=== PATIENT | female | born 1960 | race Caucasian/White ===

== ENCOUNTER 2021-03-19 11:43 | Observation (INO) | payer OTHER, BC, SELFPAY ==
[2021-03-19] VITALS (21 sets, daily range): BP systolic 98–142; BP diastolic 49–84; PULSE 71–86; RESP 16–29; TEMP 35.9–36.9; O2SAT 99–100; BMI 25.8; BMI 35.2
--- NOTE | 2021-03-19 11:42 | DI.RAD.S_ITS ---
PROCEDURE: XR CHEST 1V INDICATIONS: chest pain TECHNIQUE: One view of the chest was acquired. COMPARISON: None. FINDINGS: Surgical changes and devices: Cervical spine fixation hardware is seen. Lungs and pleura: On this semiupright portable chest examination, no large pneumothorax or large pleural effusions are seen. No focal infiltrates are seen. Mediastinum: Mediastinal contours appear normal. Heart size is normal. Bones and chest wall: No suspicious bony lesions. Age-appropriate bony degenerative changes are seen. Overlying soft tissues appear unremarkable. IMPRESSION: Portable chest within normal limits. Dictated by: Lloyd Connors M.D. on 03/19/2021 at 11:11 Approved by: Lloyd Connors M.D. on 03/19/2021 at 11:13
--- NOTE | 2021-03-19 12:17 | ED.SYNCOPE ---
HPI - Syncope General Chief Complaint: Syncope Stated Complaint: Syncope Time Seen by Provider: 03/19/21 11:47 Source: patient and EMS Mode of arrival: EMS Limitations: no limitations History of Present Illness HPI narrative: Patient is a 61-year-old female who presents after syncopal episode. She was at the [employer] taking a shower was very hot in there she has not eaten since last night she got extremely dizzy lightheaded and was found on the ground by cleaning staff. Unsure how long she was there. She definitely knew that something was about to happen. His she felt sweaty and hot. She is now feeling much better. No sign of trauma. Related Data Home Medications Medication Instructions Recorded Confirmed citalopram 20 mg tablet 20 mg PO DAILY 03/19/21 03/19/21 omeprazole 20 mg capsule,delayed 20 mg PO DAILY 03/19/21 03/19/21 release simvastatin 40 mg tablet 40 mg PO BEDTIME 03/19/21 03/19/21 tizanidine 4 mg tablet 4 mg PO BEDTIME PRN 03/19/21 03/19/21 Allergies Allergy/AdvReac Type Severity Reaction Status Date / Time Penicillins Allergy Severe Anaphylaxis Verified 03/19/21 11:51 Review of Systems Review of Systems Narrative: GENERAL: Denies chills, fatigue, malaise, fever, sweats, travel HEENT: Denies sinus pain, ear pain, sore throat, difficulty swallowing, neck pain RESPIRATORY: Denies dyspnea, cough, wheezing, hemoptysis, sputum. CARDIOVASCULAR: Denies chest pain, palpitations, orthopnea, edema GASTROINTESTINAL: Denies nausea, vomiting, abdominal pain, diarrhea, constipation, melena. : Denies dysuria, frequency, incontinence, hematuria, urinary retention, flank pain. MUSCULOSKELETAL: Denies weakness, joint pain, or bony pain SKIN: No rash, no erythema, no pruritus NEUROLOGIC: She HPI PSYCHIATRIC: No concerning psychosocial issues. 12 point review of systems is negative except for those stated above and HPI Patient History Social History household members: spouse Smoking Status: Never smoker alcohol intake: current Exam Initial Vital Signs Initial Vital Signs: Vital Signs Temperature 98.4 F 03/19/21 11:51 Pulse Rate 74 03/19/21 11:51 Respiratory Rate 18 03/19/21 11:51 Blood Pressure 98/49 L 03/19/21 11:51 Pulse Oximetry 99 03/19/21 11:51 GENERAL: Well-appearing, well-nourished and in no acute distress. HEENT: Head atraumatic,EOMI, pupils reactive, face symmetric, moist mucous membranes CARDIOVASCULAR: Regular rate and rhythm without murmurs, rubs or gallops. RESPIRATORY: Breath sounds equal bilaterally, no wheezes rales or rhonchi. ABDOMEN: Soft, nontender. Normoactive bowel sounds all 4 quadrants. No guarding or rebound. EXTREMITIES: Normal range of motion, no clubbing or edema. Neurovascularly intact NEUROLOGICAL: Alert and oriented x4.Normal gait and speech. Cranial nerves II through XII grossly intact. Good [id number], good [id number], strength equal bilaterally, no dysarthria or aphasia, sensation in tact to soft touch bilaterally, no visual changes, no facial droop SKIN: Warm, dry, no laceration, no petechiae, no rashes or lesions. Course Orders Ordered: ED Orders 03/19/21 11:42 XR chest 1V Stat 03/19/21 11:50 Complete Blood Count AUTO DIFF Stat Comprehensive Metabolic Panel Stat Lipase Stat Troponin & CK Cardiac Panel Stat EKG-12 Lead Stat 03/19/21 12:46 Packed Cells Stat Type and Screen Stat 03/19/21 12:50 COVID19 - ADMIT ([employer] swab/PCR) Stat 03/19/21 12:58 Iron Profile (w/ % Saturation) Stat Acetaminophen (Acetaminophen 325 Mg Tablet) 650 mg PO Q6HR PRN PRN Reason: Fever/Mild Pain (1-3) Atorvastatin Calcium (Atorvastatin 20 Mg Tablet) 20 mg PO BEDTIME [facility] Citalopram Hydrobromide (Citalopram 10 Mg Tablet) 20 mg PO DAILY [facility] Dextrose/Sodium Chloride (Dextrose 5%-0.9% Ns) 1,000 mls @ 100 mls/hr IV CONT [facility] Last Admin: 03/19/21 18:04 Dose: 100 mls/hr Documented by: JEET Naloxone HCl (Naloxone 0.4 Mg/Ml Vial) 0.2 mg IV Q2MIN PRN PRN Reason: Opiate Reversal Ondansetron HCl (Ondansetron 4 Mg/2 Ml Inj) 4 mg IV Q8HR PRN PRN Reason: Nausea And Vomiting Pantoprazole Sodium (Pantoprazole 40 Mg Vial) 40 mg IV BID [facility] Tizanidine HCl (Tizanidine 4 Mg Tablet) 4 mg PO BEDTIME [facility] Discontinued Medications Iron Sucrose 200 mg/ Sodium (Chloride) 110 mls @ 220 mls/hr IV NOW ONE Stop: 03/19/21 16:34 Last Admin: 03/19/21 17:17 Dose: 220 mls/hr Documented by: JEET Vital Signs Vital signs: Vital Signs - 8 hr 03/19/21 11:51 03/19/21 11:52 03/19/21 12:00 Temperature 98.4 F Pulse Rate 76 77 77 Pulse Rate [Orthostatic Lying] Pulse Rate [Orthostatic Sitting] Pulse Rate [Orthostatic Standing] Respiratory Rate 21 24 22 Blood Pressure 98/49 L 106/53 L Blood Pressure [Orthostatic Lying] Blood Pressure [Orthostatic Sitting] Blood Pressure [Orthostatic Standing] Pulse Oximetry 99 99 100 03/19/21 12:13 03/19/21 12:14 03/19/21 12:15 Temperature Pulse Rate 73 78 80 Pulse Rate [Orthostatic Lying] Pulse Rate [Orthostatic Sitting] Pulse Rate [Orthostatic Standing] Respiratory Rate 21 29 H 26 H Blood Pressure 111/60 107/55 L 113/56 L Blood Pressure [Orthostatic Lying] Blood Pressure [Orthostatic Sitting] Blood Pressure [Orthostatic Standing] Pulse Oximetry 100 100 100 03/19/21 12:20 03/19/21 12:30 03/19/21 13:00 Temperature Pulse Rate 75 74 Pulse Rate [Orthostatic Lying] 73 Pulse Rate [Orthostatic Sitting] 78 Pulse Rate [Orthostatic Standing] 80 Respiratory Rate 17 17 Blood Pressure 106/58 L 120/63 Blood Pressure [Orthostatic Lying] 111/60 Blood Pressure [Orthostatic Sitting] 107/55 L Blood Pressure [Orthostatic Standing] 113/56 L Pulse Oximetry 100 100 03/19/21 13:30 03/19/21 13:59 03/19/21 14:00 Temperature Pulse Rate 71 73 73 Pulse Rate [Orthostatic Lying] Pulse Rate [Orthostatic Sitting] Pulse Rate [Orthostatic Standing] Respiratory Rate 21 21 24 Blood Pressure 125/65 131/73 Blood Pressure [Orthostatic Lying] Blood Pressure [Orthostatic Sitting] Blood Pressure [Orthostatic Standing] Pulse Oximetry 99 100 100 MDM - Syncope Lab Data Result diagrams: 03/19/21 11:50 03/19/21 11:50 Labs: Lab Results 03/19/21 03/19/21 03/19/21 Range/Units 11:50 11:50 12:46 WBC 7.0 (4.5-11.0) X10^3/uL RBC 3.82 L (4.0-5.2) X10^6/uL Hgb 6.7 L* (12.0-16.0) g/dL Hct 22.3 L (36-46) % MCV 58.5 L (80-100) fL MCH 17.4 L (26-34) PG MCHC 29.8 L (30-36) % RDW 20.0 H (11.6-14.8) % Plt Count 234 (150-400) X10^3/uL Neut % (Auto) 65.0 (50-75) % Lymph % (Auto) 24.6 L (25-40) % [place] % (Auto) 8.0 (3-14) % Eos % (Auto) 1.4 L (2-4) % Baso % (Auto) 1.0 (0-2) % Neut # (Auto) 4600 (9306-4484) /uL Lymph # (Auto) 1700 (4346-0034) /uL [place] # (Auto) 600 (0-900) /uL Eos # (Auto) 100 (0-450) /uL Baso # (Auto) 100 (0-100) /uL RBC Morphology Not Reportable Polychromasia 1+ H Hypochromasia 3+ H Poikilocytosis 1+ H Anisocytosis 3+ H Sodium 139 (137-145) mmol/L Potassium 3.4 (3.4-5.1) mmol/L Chloride 109 H (98-107) mmol/L Carbon Dioxide 19 L (22-32) mmol/L BUN 14 (7-17) mg/dL Creatinine 0.73 (0.52-1.04) mg/dL Estimated GFR > 60.0 (>60) mL/min BUN/Creatinine Ratio 19.2 (6-22) Glucose 157 H (70-100) mg/dL Calcium 9.3 (8.4-10.2) mg/dL Iron (37-170) ug/dL TIBC (265-497) ug/dL % Saturation (15-50) % Transferrin (206-381) mg/dL Total Bilirubin 0.7 (0.2-1.3) mg/dL AST 39 H (14-36) IU/L ALT 29 (<35) IU/L Alkaline Phosphatase 69 (38-126) U/L Lactate Dehydrogenase (313-618) U/L Total Creatine Kinase 51 (30-135) U/L CK-MB (CK-2) TNP CK-MB (CK-2) Rel Index TNP Troponin I < 0.012 (0.01-0.034) ng/mL Total Protein 7.0 (6.3-8.2) g/dL Albumin 4.4 (3.5-5.0) g/dL Globulin 2.6 (1.7-4.1) g/dL Albumin/Globulin Ratio 1.7 (1.0-2.8) Lipase 139 (23-300) U/L SARS-CoV-2 (PCR) (Negative) Blood Type A Negative Antibody Screen Negative Crossmatch See Detail 03/19/21 03/19/21 03/19/21 Range/Units 12:50 12:58 12:58 WBC (4.5-11.0) X10^3/uL RBC (4.0-5.2) X10^6/uL Hgb (12.0-16.0) g/dL Hct (36-46) % MCV (80-100) fL MCH (26-34) PG MCHC (30-36) % RDW (11.6-14.8) % Plt Count (150-400) X10^3/uL Neut % (Auto) (50-75) % Lymph % (Auto) (25-40) % [place] % (Auto) (3-14) % Eos % (Auto) (2-4) % Baso % (Auto) (0-2) % Neut # (Auto) (2605-9833) /uL Lymph # (Auto) (6013-8765) /uL [place] # (Auto) (0-900) /uL Eos # (Auto) (0-450) /uL Baso # (Auto) (0-100) /uL RBC Morphology Polychromasia Hypochromasia Poikilocytosis Anisocytosis Sodium (137-145) mmol/L Potassium (3.4-5.1) mmol/L Chloride (98-107) mmol/L Carbon Dioxide (22-32) mmol/L BUN (7-17) mg/dL Creatinine (0.52-1.04) mg/dL Estimated GFR (>60) mL/min BUN/Creatinine Ratio (6-22) Glucose (70-100) mg/dL Calcium (8.4-10.2) mg/dL Iron 21 L (37-170) ug/dL TIBC 591 H (265-497) ug/dL % Saturation 4 L (15-50) % Transferrin 488 H (206-381) mg/dL Total Bilirubin 0.7 (0.2-1.3) mg/dL AST (14-36) IU/L ALT (<35) IU/L Alkaline Phosphatase (38-126) U/L Lactate Dehydrogenase 578 (313-618) U/L Total Creatine Kinase (30-135) U/L CK-MB (CK-2) CK-MB (CK-2) Rel Index Troponin I (0.01-0.034) ng/mL Total Protein (6.3-8.2) g/dL Albumin (3.5-5.0) g/dL Globulin (1.7-4.1) g/dL Albumin/Globulin Ratio (1.0-2.8) Lipase (23-300) U/L SARS-CoV-2 (PCR) Negative (Negative) Blood Type Antibody Screen Crossmatch ECG Data Interpretation: Normal sinus rhythm rate 73 OR interval 176 QRS [address] changes or T-wave inversions MDM Narrative Medical decision making narrative: The patient is found to be anemic with a hemoglobin of 6 hematocrit of 22. She denies any rectal bleeding or vaginal bleeding no nausea vomiting. She has no black in stool. She states that she does have a history of needing a blood transfusion of about 4 or 5 years ago. She had uterine fibroids and was having excessive vaginal bleeding. She was found have a hemoglobin of 5 and required blood transfusion. She says since then she has gone through menopause she is no longer having vaginal bleeding. She does have low MCV of 58 which suggest iron deficiency anemia. Iron Studies have also been added. Dr. stevens updated patient's symptoms test results and happily patient Discharge Plan Departure Patient Disposition: Admitted as Observation Clinical Impression: Anemia Admit Date/Time: 03/19/21 14:06 Admit Provider: Sherie Stevens
[2021-03-19 12:27] LABS: Add Manual Diff / Slide Review NO; Basophils Absolute Auto 100 /uL (0-100); Eosinophils Absolute Auto 100 /uL (0-450); Eosinophils Percent Auto 1.4 % (2-4); Hematocrit 22.3 % (36-46); Lymphocytes Absolute Auto 1700 /uL (1100-4500); Lymphocytes Percent Auto 24.6 % (25-40); Mean Corpuscular HGB Conc 29.8 % (30-36); Mean Corpuscular Hemoglobin 17.4 PG (26-34); Mean Corpuscular Volume 58.5 fL (80-100); Monocytes Absolute Auto 600 /uL (0-900); Neutrophils Absolute Auto 4600 /uL (1500-7000); Platelet Count 234 X10^3/uL (150-400); Red Blood Cell Count 3.82 X10^6/uL (4.0-5.2)
[2021-03-19 12:28] LABS: Hemoglobin 6.7 g/dL (12.0-16.0)
[2021-03-19 12:31] LABS: Alanine Aminotransferase 29 IU/L (<35); Albumin 4.4 g/dL (3.5-5.0); Albumin Globulin Ratio 1.7 (1.0-2.8); Alkaline Phosphatase 69 U/L (38-126); Aspartate Aminotransferase 39 IU/L (14-36); BUN Creatinine Ratio 19.2 (6-22); Bilirubin Total 0.7 mg/dL (0.2-1.3); Blood Urea Nitrogen 14 mg/dL (7-17); Calcium 9.3 mg/dL (8.4-10.2); Carbon Dioxide 19 mmol/L (22-32); Chloride 109 mmol/L (98-107); Creatine Kinase 51 U/L (30-135); Estimated Glomerular Filt Rate > 60.0 mL/min (>60); Globulin 2.6 g/dL (1.7-4.1); Glucose 157 mg/dL (70-100); HEMOLYSIS < 15 (0-50); Lipase 139 U/L (23-300); Potassium 3.4 mmol/L (3.4-5.1); Sodium 139 mmol/L (137-145)
[2021-03-19 12:42] LABS: Troponin I < 0.012 ng/mL (0.01-0.034)
[2021-03-19 13:03] LABS: Anisocytosis 3+; Hypochromasia 3+; Poikilocytosis 1+; Polychromasia 1+
[2021-03-19 13:11] LABS: HEMOLYSIS < 15 (0-50); Iron 21 ug/dL (37-170)
[2021-03-19 13:22] LABS: Percent Iron Saturation 4 % (15-50); Total Iron Binding Capacity 591 ug/dL (265-497); Transferrin 488 mg/dL (206-381)
[2021-03-19 13:59] LABS: COVID19 - ADMIT (NP swab/PCR) Negative (Negative)
--- NOTE | 2021-03-19 16:45 | P.HP_ITS ---
History of Present Illness History of Present Illness Chief complaint: Syncope Narrative: The patient is a 61-year-old female with a history of depression, GERD, hyperlipidemia, fibromyalgia, irritable bowel syndrome who reports for the past several weeks she has had intermittent periods of lightheadedness and di zziness. She attributed it to the heat. Patient was in route from [place] to [facility] with her on her boat. She went to the restroom for shower and sat down and subsequently passed out. Patient states she felt lightheaded and woozy. As she was attempting to collect herself she literally loss consciousness. She denies any shortness of breath or chest pain. She has had no nausea or vomiting. No hematemesis no melena or bright red blood per rectum. The patient did not have anything to eat today and has had no BM. She does report a history of anemia which was associated with your to uterine fibroids many years ago. The patient is postmenopausal and does not have vaginal bleeding. She does report a taking ibuprofen is enlarged doses about 1 year ago but since that time has not been using ibuprofen. She has no history of ulcer. She does report having a colonoscopy 5 years ago which was negative except for polyp removal. She underwent the colonoscopy as she has a family history of colon cancer. Patient was evaluated in the emergency room and found to have a hemoglobin of 6 and hematocrit of 22. She is being transfused 2 units of packed RBCs and admitted to the hospital for further evaluation. In addition the patient was found to have a low MCV of 58, low iron, low iron sat, and evidence to suggest iron deficiency anemia. Patient History Family & Social History Social History: household members spouse Prior Living Arrangements House Safety & Behavioral: Feels Safe in Current Yes Environment Been Physically Hurt or No Threatened By a Person Suicidal Ideation Description None Suicide Plan Description No Plan Tobacco & Substance use: Smoking Status Never smoker alcohol intake current alcohol intake frequency holiday/special occasion Substance Use Type does not use Past History Past medical history: 1. Fibromyalgia 2. Depression 3. GERD Number for hyperlipidemia Past surgical history: 1. Cholecystectomy 2. 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 Patient denies any history of illicit substance use. Meds Home Medications and Allergies Home Medications Medication Instructions Recorded Confirmed Type citalopram 20 mg tablet 20 mg PO DAILY 03/19/21 03/19/21 History omeprazole 20 mg capsule,delayed 20 mg PO DAILY 03/19/21 03/19/21 History release simvastatin 40 mg tablet 40 mg PO BEDTIME 03/19/21 03/19/21 History tizanidine 4 mg tablet 4 mg PO BEDTIME PRN 03/19/21 03/19/21 History Allergies Allergy/AdvReac Type Severity Reaction Status Date / Time Penicillins Allergy Severe Anaphylaxis Verified 03/19/21 11:51 Review of Systems Review of Systems Narrative: Ten point review of systems is negative except as described above Exam Vital Signs (past 8 hours): - 03/19/21 11:51 03/19/21 11:52 03/19/21 12:00 Temperature 98.4 F Pulse Rate 76 77 77 Pulse Rate [Orthostatic Lying] Pulse Rate [Orthostatic Sitting] Pulse Rate [Orthostatic Standing] Respiratory Rate 21 24 22 Blood Pressure 98/49 L 106/53 L Blood Pressure [Orthostatic Lying] Blood Pressure [Orthostatic Sitting] Blood Pressure [Orthostatic Standing] Pulse Oximetry 99 99 100 03/19/21 12:13 03/19/21 12:14 03/19/21 12:15 Temperature Pulse Rate 73 78 80 Pulse Rate [Orthostatic Lying] Pulse Rate [Orthostatic Sitting] Pulse Rate [Orthostatic Standing] Respiratory Rate 21 29 H 26 H Blood Pressure 111/60 107/55 L 113/56 L Blood Pressure [Orthostatic Lying] Blood Pressure [Orthostatic Sitting] Blood Pressure [Orthostatic Standing] Pulse Oximetry 100 100 100 03/19/21 12:20 03/19/21 12:30 03/19/21 13:00 Temperature Pulse Rate 75 74 Pulse Rate [Orthostatic Lying] 73 Pulse Rate [Orthostatic Sitting] 78 Pulse Rate [Orthostatic Standing] 80 Respiratory Rate 17 17 Blood Pressure 106/58 L 120/63 Blood Pressure [Orthostatic Lying] 111/60 Blood Pressure [Orthostatic Sitting] 107/55 L Blood Pressure [Orthostatic Standing] 113/56 L Pulse Oximetry 100 100 03/19/21 13:30 03/19/21 13:59 03/19/21 14:00 Temperature Pulse Rate 71 73 73 Pulse Rate [Orthostatic Lying] Pulse Rate [Orthostatic Sitting] Pulse Rate [Orthostatic Standing] Respiratory Rate 21 21 24 Blood Pressure 125/65 131/73 Blood Pressure [Orthostatic Lying] Blood Pressure [Orthostatic Sitting] Blood Pressure [Orthostatic Standing] Pulse Oximetry 99 100 100 03/19/21 14:30 03/19/21 14:49 03/19/21 15:04 Temperature 97.8 F 97.5 F L Pulse Rate 75 78 79 Pulse Rate [Orthostatic Lying] Pulse Rate [Orthostatic Sitting] Pulse Rate [Orthostatic Standing] Respiratory Rate 24 16 17 Blood Pressure 142/67 H 142/67 H 112/59 L Blood Pressure [Orthostatic Lying] Blood Pressure [Orthostatic Sitting] Blood Pressure [Orthostatic Standing] Pulse Oximetry 100 03/19/21 15:20 Temperature 97.8 F Pulse Rate 86 Pulse Rate [Orthostatic Lying] Pulse Rate [Orthostatic Sitting] Pulse Rate [Orthostatic Standing] Respiratory Rate 18 Blood Pressure 140/84 Blood Pressure [Orthostatic Lying] Blood Pressure [Orthostatic Sitting] Blood Pressure [Orthostatic Standing] Pulse Oximetry 100 Oxygen Delivery Method Room Air Narrative Exam Narrative: Pleasant female lying in bed in no obvious distress [facility] Other: HEENT: Normocephalic atraumatic, extraocular muscles are intact, oropharynx reveals pale mucous membranes, membranes are moist without exudate Eyes Other: Extraocular muscles are intact, no jaundice noted, no conjunctiva ejection Neck Other: Neck is supple, no adenopathy, , no thyromegaly Resp Other: Lungs: Clear to auscultation Cardio Other: Cardiac exam: Regular rate and rhythm normal S1-S2 with a 2/6 systolic ejection murmur GI Other: Abdomen: Soft nontender nondistended, no hepatosplenomegaly, no board- like rigidity, no palpable masses Skin Other: No lesions noted Neuro Other: Nonfocal Extrem Other: No edema Psych Other: No delusions or hallucinations, speech mood affect is normal, Objective Labs Result Diagrams: 03/19/21 11:50 03/19/21 11:50 Labs: Laboratory Results - last 24 hr 03/19/21 03/19/21 03/19/21 11:50 11:50 12:46 WBC 7.0 RBC 3.82 L Hgb 6.7 L* Hct 22.3 L MCV 58.5 L MCH 17.4 L MCHC 29.8 L RDW 20.0 H Plt Count 234 Neut % (Auto) 65.0 Lymph % (Auto) 24.6 L [place] % (Auto) 8.0 Eos % (Auto) 1.4 L Baso % (Auto) 1.0 Neut # (Auto) 4600 Lymph # (Auto) 1700 [place] # (Auto) 600 Eos # (Auto) 100 Baso # (Auto) 100 RBC Morphology Not Reportable Polychromasia 1+ H Hypochromasia 3+ H Poikilocytosis 1+ H Anisocytosis 3+ H Sodium 139 Potassium 3.4 Chloride 109 H Carbon Dioxide 19 L BUN 14 Creatinine 0.73 Estimated GFR > 60.0 BUN/Creatinine Ratio 19.2 Glucose 157 H Calcium 9.3 Iron TIBC % Saturation Transferrin Total Bilirubin 0.7 AST 39 H ALT 29 Alkaline Phosphatase 69 Total Creatine Kinase 51 CK-MB (CK-2) TNP CK-MB (CK-2) Rel Index TNP Troponin I < 0.012 Total Protein 7.0 Albumin 4.4 Globulin 2.6 Albumin/Globulin Ratio 1.7 Lipase 139 SARS-CoV-2 (PCR) Blood Type A Negative Antibody Screen Negative Crossmatch See Detail 03/19/21 03/19/21 12:50 12:58 WBC RBC Hgb Hct MCV MCH MCHC RDW Plt Count Neut % (Auto) Lymph % (Auto) [place] % (Auto) Eos % (Auto) Baso % (Auto) Neut # (Auto) Lymph # (Auto) [place] # (Auto) Eos # (Auto) Baso # (Auto) RBC Morphology Polychromasia Hypochromasia Poikilocytosis Anisocytosis Sodium Potassium Chloride Carbon Dioxide BUN Creatinine Estimated GFR BUN/Creatinine Ratio Glucose Calcium Iron 21 L TIBC 591 H % Saturation 4 L Transferrin 488 H Total Bilirubin AST ALT Alkaline Phosphatase Total Creatine Kinase CK-MB (CK-2) CK-MB (CK-2) Rel Index Troponin I Total Protein Albumin Globulin Albumin/Globulin Ratio Lipase SARS-CoV-2 (PCR) Negative Blood Type Antibody Screen Crossmatch Assessment & Plan Assessment & Plan narrative: 61-year-old female admitted to the hospital for syncope -suspect syncope is related to anemia + patient with evidence to suggest iron deficiency anemia -given her history of GERD possibility of acute blood loss anemia remains, currently at this time there was no evidence of blood loss -other etiologies of anemia include marrow failure, hemoptysis, versus acute blood loss -patient will start on a clear liquid diet and be made NPO after midnight -patient to start on IV PPI -patient currently receiving 2 units of packed RBCs -will provide IV iron as well -patient to have upper endoscopy tomorrow per Dr. Thomason to rule out upper GI source of bleeding -no Lovenox or heparin given her anemia, SCDs will be placed for DVT prophylaxis Hyperlipidemia -will continue statin Fibromyalgia -continue to tinzanidine Depression Continue citalopram GERD Proton pump inhibitor as above Patient reports she is a full code Her Jordan is her durable power of grey roll man/surrogate decision maker Patient will be placed in observation as we anticipate discharge home following her upper endoscopy tomorrow Will repeat H&H tonight Will repeat labs in the morning Quality VTE Deep Vein Thrombosis/Pulmonary Embolism Present on Admission: No MIPS - Admit I confirm the patient?s Advance Care Plan is present, Code status is documented, Surrogate decision maker is in patient?s record [If Yes, STOP here]: Yes
[2021-03-19 16:54] LABS: Bilirubin Total 0.7 mg/dL (0.2-1.3); Lactate Dehydrogenase 578 U/L (313-618)
[2021-03-19] MEDS: IRON SUCROSE 200 MG in SODIUM CHLORIDE 0.9% 100 ML 220 ML IV (17:17)
[2021-03-19] MEDS: DEXTROSE 5%-0.9% NS 1,000 ML 100 ML IV (18:04)
[2021-03-19] MEDS: ACETAMINOPHEN 325 MG TABLET 650 MG PO (19:39)
[2021-03-19] MEDS: PANTOPRAZOLE 40 MG VIAL IV (20:05)
[2021-03-19] MEDS: ATORVASTATIN 20 MG TABLET PO (20:05)
[2021-03-19] MEDS: TIZANIDINE 4 MG TABLET PO (20:05)
[2021-03-19 21:26] LABS: Add Manual Diff / Slide Review NO; Basophils Absolute Auto 100 /uL (0-100); Basophils Percent Auto 0.9 % (0-2); Eosinophils Absolute Auto 0 /uL (0-450); Eosinophils Percent Auto 0.1 % (2-4); Hematocrit 27.2 % (36-46); Hemoglobin 8.3 g/dL (12.0-16.0); Lymphocytes Absolute Auto 1900 /uL (1100-4500); Lymphocytes Percent Auto 19.8 % (25-40); Mean Corpuscular HGB Conc 30.4 % (30-36); Mean Corpuscular Hemoglobin 19.9 PG (26-34); Mean Corpuscular Volume 65.4 fL (80-100); Monocytes Absolute Auto 900 /uL (0-900); Monocytes Percent Auto 9.4 % (3-14); Neutrophils Absolute Auto 6500 /uL (1500-7000); Neutrophils Percent Auto 69.8 % (50-75); Platelet Count 225 X10^3/uL (150-400); Red Blood Cell Count 4.16 X10^6/uL (4.0-5.2); Red Cell Distribution Width 28.1 % (11.6-14.8); White Blood Cell Count 9.4 X10^3/uL (4.5-11.0)
[2021-03-19 21:39] LABS: Anisocytosis 3+; Hypochromasia 3+; Poikilocytosis 1+; Polychromasia 1+
[2021-03-20] VITALS (14 sets, daily range): BP systolic 104–148; BP diastolic 65–78; PULSE 56–75; RESP 12–22; TEMP 35.9–36.8; O2SAT 94–100; BMI 35.2
--- NOTE | 2021-03-20 | PATH_ITS ---
[facility] Accession Number: [id number] . 01 Material submitted: . esophagus, E-G Junction - GE JUNCTION BIOPSY . 01 Clinical history: . SYNCOPE . 02 Diagnosis: Gastroesophageal Junction, Biopsy: Squamous mucosa with no diagnostic abnormality. No glandular mucosa present for evaluation. Negative for dysplasia or malignancy. V 03/23/2021 1052 Local . 02 Electronically signed: . Bakari Villarreal MD, PhD, Pathologist NPI- [id number] . 01 Gross description: . GE JUNCTION BIOPSY: Received in formalin is 1 fragment(s) of moncada, soft tissue measuring 0.4 x 0.3 x 0.3 cm submitted entirely in 1 cassette(s) /TYRONE 03/21/2021 0224 Local . 02 Pathologist provided ICD-10: R10.13 . 02 CPT . 663697 [facility]formed at: [facility] [address] [id number] MD Dash Miranda MD Phone: [phone] [facility]formed at: [facility] [address] [place], [place] [id number] MD Dolly Bee MD Phone: [phone]
[2021-03-20] MEDS: DEXTROSE 5%-0.9% NS 1,000 ML 100 ML IV ×2 (04:01→13:58)
[2021-03-20 06:08] LABS: BUN Creatinine Ratio 11.6 (6-22); Blood Urea Nitrogen 8 mg/dL (7-17); Calcium 9.1 mg/dL (8.4-10.2); Carbon Dioxide 24 mmol/L (22-32); Chloride 112 mmol/L (98-107); Estimated Glomerular Filt Rate > 60.0 mL/min (>60); Glucose 113 mg/dL (70-100); HEMOLYSIS < 15 (0-50); Potassium 3.8 mmol/L (3.4-5.1); Sodium 142 mmol/L (137-145)
[2021-03-20 06:22] LABS: Add Manual Diff / Slide Review NO; Basophils Absolute Auto 100 /uL (0-100); Basophils Percent Auto 1.2 % (0-2); Eosinophils Absolute Auto 100 /uL (0-450); Eosinophils Percent Auto 0.7 % (2-4); Hematocrit 27.9 % (36-46); Hemoglobin 8.4 g/dL (12.0-16.0); Lymphocytes Absolute Auto 1700 /uL (1100-4500); Lymphocytes Percent Auto 23.5 % (25-40); Mean Corpuscular HGB Conc 30.1 % (30-36); Mean Corpuscular Hemoglobin 19.8 PG (26-34); Mean Corpuscular Volume 65.8 fL (80-100); Monocytes Absolute Auto 700 /uL (0-900); Monocytes Percent Auto 9.9 % (3-14); Neutrophils Absolute Auto 4600 /uL (1500-7000); Neutrophils Percent Auto 64.7 % (50-75); Platelet Count 224 X10^3/uL (150-400); Red Blood Cell Count 4.24 X10^6/uL (4.0-5.2); Red Cell Distribution Width 27.7 % (11.6-14.8); White Blood Cell Count 7.2 X10^3/uL (4.5-11.0)
[2021-03-20 06:45] LABS: Anisocytosis 3+; Hypochromasia 3+; Poikilocytosis 1+; Polychromasia 1+
[2021-03-20 06:46] LABS: Microcytosis 2+
[2021-03-20] MEDS: PANTOPRAZOLE 40 MG VIAL IV (09:53)
[2021-03-20] MEDS: SODIUM CHLORIDE 0.9% FLUSH 10 ML IV (09:53)
[2021-03-20] MEDS: CITALOPRAM 10 MG TABLET 20 MG PO (09:53)
--- NOTE | 2021-03-20 11:16 | PM.CN ---
History of Present Illness Consult details Date Patient Seen: 03/20/21 Time Patient Seen: 11:17 Chief complaint: Syncope Narrative: 61-year-old woman admitted to the hospital for syncope and anemia. Following a syncopal episode she was brought to the hospital initial hematocrit 22. Received 2 units of packed red blood cells repeat hematocrit 28. No blood per rectum, diarrhea or abdominal pain. Colonoscopy 5 years ago was normal. History of gastritis. No recent NSAIDs or anticoagulants. Meds Home Medications and Allergies Home Medications Medication Instructions Recorded Confirmed Type citalopram 20 mg tablet 20 mg PO DAILY 03/19/21 03/19/21 History omeprazole 20 mg capsule,delayed 20 mg PO DAILY 03/19/21 03/19/21 History release simvastatin 40 mg tablet 40 mg PO BEDTIME 03/19/21 03/19/21 History tizanidine 4 mg tablet 4 mg PO BEDTIME PRN 03/19/21 03/19/21 History Allergies Allergy/AdvReac Type Severity Reaction Status Date / Time Penicillins Allergy Mild Rash Verified 03/20/21 11:10 Review of Systems Review of Systems ROS: Yes All systems reviewed with the patient and are negative except as otherwise documented Exam Vital Signs (past 8 hours): - 03/20/21 04:00 03/20/21 08:00 03/20/21 09:08 Temperature 97.7 F 97.5 F L Pulse Rate 62 73 Respiratory Rate 17 17 Blood Pressure 124/67 137/73 Pulse Oximetry 97 100 100 Oxygen Delivery Method Room Air Oxygen Flow Rate 0 Narrative Exam Narrative: GENERAL-well developed adult female, no acute distress HEENT-no scleral icterus, hearing intact NECK-no JVD, trachea midline CVS- regular rate, no peripheral edema RESP-unlabored respiratory effort, no audible wheezing GI-soft, nontender nondistended MSK-no cyanosis or clubbing, extremities without deformity SKIN-warm, dry NEURO-alert and oriented, no focal deficits PYSCH-Appropriate mood and affect Objective Labs Result Diagrams: 03/20/21 05:19 03/20/21 05:19 Labs: Laboratory Results - last 24 hr 03/19/21 03/19/21 03/19/21 11:50 11:50 12:46 WBC 7.0 RBC 3.82 L Hgb 6.7 L* Hct 22.3 L MCV 58.5 L MCH 17.4 L MCHC 29.8 L RDW 20.0 H Plt Count 234 Neut % (Auto) 65.0 Lymph % (Auto) 24.6 L [place] % (Auto) 8.0 Eos % (Auto) 1.4 L Baso % (Auto) 1.0 Neut # (Auto) 4600 Lymph # (Auto) 1700 [place] # (Auto) 600 Eos # (Auto) 100 Baso # (Auto) 100 RBC Morphology Not Reportable Polychromasia 1+ H Hypochromasia 3+ H Poikilocytosis 1+ H Anisocytosis 3+ H Microcytosis Sodium 139 Potassium 3.4 Chloride 109 H Carbon Dioxide 19 L BUN 14 Creatinine 0.73 Estimated GFR > 60.0 BUN/Creatinine Ratio 19.2 Glucose 157 H Calcium 9.3 Iron TIBC % Saturation Transferrin Total Bilirubin 0.7 AST 39 H ALT 29 Alkaline Phosphatase 69 Lactate Dehydrogenase Total Creatine Kinase 51 CK-MB (CK-2) TNP CK-MB (CK-2) Rel Index TNP Troponin I < 0.012 Total Protein 7.0 Albumin 4.4 Globulin 2.6 Albumin/Globulin Ratio 1.7 Lipase 139 SARS-CoV-2 (PCR) Blood Type A Negative Antibody Screen Negative Crossmatch See Detail 03/19/21 03/19/21 03/19/21 12:50 12:58 12:58 WBC RBC Hgb Hct MCV MCH MCHC RDW Plt Count Neut % (Auto) Lymph % (Auto) [place] % (Auto) Eos % (Auto) Baso % (Auto) Neut # (Auto) Lymph # (Auto) [place] # (Auto) Eos # (Auto) Baso # (Auto) RBC Morphology Polychromasia Hypochromasia Poikilocytosis Anisocytosis Microcytosis Sodium Potassium Chloride Carbon Dioxide BUN Creatinine Estimated GFR BUN/Creatinine Ratio Glucose Calcium Iron 21 L TIBC 591 H % Saturation 4 L Transferrin 488 H Total Bilirubin 0.7 AST ALT Alkaline Phosphatase Lactate Dehydrogenase 578 Total Creatine Kinase CK-MB (CK-2) CK-MB (CK-2) Rel Index Troponin I Total Protein Albumin Globulin Albumin/Globulin Ratio Lipase SARS-CoV-2 (PCR) Negative Blood Type Antibody Screen Crossmatch 03/19/21 03/20/21 03/20/21 21:00 05:19 05:19 WBC 9.4 7.2 RBC 4.16 4.24 Hgb 8.3 L 8.4 L Hct 27.2 L 27.9 L MCV 65.4 L D 65.8 L MCH 19.9 L 19.8 L MCHC 30.4 30.1 RDW 28.1 H 27.7 H Plt Count 225 224 Neut % (Auto) 69.8 64.7 Lymph % (Auto) 19.8 L 23.5 L [place] % (Auto) 9.4 9.9 Eos % (Auto) 0.1 L 0.7 L Baso % (Auto) 0.9 1.2 Neut # (Auto) 6500 4600 Lymph # (Auto) 1900 1700 [place] # (Auto) 900 700 Eos # (Auto) 0 100 Baso # (Auto) 100 100 RBC Morphology See below See below Polychromasia 1+ H 1+ H Hypochromasia 3+ H 3+ H Poikilocytosis 1+ H 1+ H Anisocytosis 3+ H 3+ H Microcytosis 2+ H Sodium 142 Potassium 3.8 Chloride 112 H Carbon Dioxide 24 BUN 8 Creatinine 0.69 Estimated GFR > 60.0 BUN/Creatinine Ratio 11.6 Glucose 113 H Calcium 9.1 Iron TIBC % Saturation Transferrin Total Bilirubin AST ALT Alkaline Phosphatase Lactate Dehydrogenase Total Creatine Kinase CK-MB (CK-2) CK-MB (CK-2) Rel Index Troponin I Total Protein Albumin Globulin Albumin/Globulin Ratio Lipase SARS-CoV-2 (PCR) Blood Type Antibody Screen Crossmatch Assessment & Plan Assessment & Plan narrative: 61-year-old woman admitted for syncope and anemia. Endoscopy requested to evaluate for source of acute blood loss anemia. She has received 2 units of packed red blood cells hemodynamically stable post transfusion hematocrit 28. Colonoscopy was normal 5 years ago no evidence of lower GI bleed. It is reasonable to proceed with esophagoduodenoscopy. Technical details of the procedure were discussed with the patient. Procedural risks including bleeding, infection, intestinal perforation, missed diagnosis, were discussed. Her questions have been answered and she is in agreement with this plan
--- NOTE | 2021-03-20 15:42 | PC.NURSE ---
Addendum entered by Astrid Carroll R.N. 03/20/21 17:12: Tele reapplied, ICU notified. Addendum entered by Astrid Carroll R.N. 03/20/21 17:04: Patient returned to floor. Denies nausea, vomiting, or pain. Original Note: Patient off the floor at 1532, notified ICU that tele was off patient.
[2021-03-20] MEDS: LACTATED RINGERS 1,000 ML 42 ML IV (15:57)
--- NOTE | 2021-03-20 16:13 | P.OP.ENDO_ITS ---
Operative Date/Time/Diagnoses Date of procedure: 03/20/21 Time of procedure: 16:13 Pre-op diagnosis: anemia. Had a colonoscopy almost 5 years ago with polyp found at that time. Prefers to return home to [place] and schedule with her regular GI for that. Post-op diagnosis: same Procedure & Clinicians Study performed: EGD with moderate sedation Same procedure as scheduled: Yes Indications: anemia Surgeon: Adrienne Cervantes Procedure Notes SCOAP/Timeout: done Procedure in detail: Prep diagnosis: Anemia, symptomatic Postop diagnosis: Same Operative procedure: EGD with cold forceps biopsy and moderate sedation Surgeon: Carlota Cervantes MD Anesthetic: Fentanyl 100 mcg, Versed 6 mg Findings: Large hiatal hernia. No ulcerations or gastritis of the stomach. Duodenum was also within normal limits. No evidence of areas of potential blood loss. Esophagus also within normal limits Procedure: Patient is placed in a lateral position. Scope was inserted into esophagus advanced into her stomach identify the pylorus after insufflation and intubated into the duodenum. First and 2nd portion of duodenum were within normal limits. No ulcerations, no inflammatory process. Extraction back into the stomach itself again showed normal mucosa. Retroflexion showed a large hiatal hernia. Biopsies taken at the GE junction x1 with cold forceps. I extracted through the esophagus without identifying any abnormalities there either. Impression: No source of blood loss. Normal duodenum, normal stomach, large hiatal hernia. Normal esophagus Plan: She has requested returning to her home in [place] to schedule for colonoscopy there. Will discuss with hospitalist Findings: hiatal hernia Specimen(s): other (GE junction, random cold forcep bx) Complications: none Impression: no source of anemia Post-procedure Follow up: as needed Disposition: PACU
[2021-03-20] MEDS: LIDOCAINE 4% SOLN 50 ML 20 ML TOP (16:20)
[2021-03-20] MEDS: fentaNYL 250 MCG/5 ML INJ IV (16:26)
[2021-03-20] MEDS: MIDAZOLAM 5 MG/5 ML VIAL IV (16:26)
--- NOTE | 2021-03-20 16:39 | CM.DANOTE ---
DCP ASSESSMENT: Patient is a 61 year-old female admitted for Syncope related to anemia. PCP is Crissy Devlin. Primary payer is [employer] and self-pay. Patient hematocrit was 22 and she received 2 units of Red Blood cells. Patient is pending procedure this afternoon. YARELY Student met with patient she was sitting in chair alert and oriented. Educated patient on role of social work and discharge planning. Patient is independent at base-line and lives with her and children. She resides in [place] and is in [place] for vacation. Patient will either go home via boat or her daughter can drive if necessary. Patient reported she has already spoken with her PCP and will follow-up as necessary. PLAN: Anticipate home when medically stable. CM Team to continue to follow. YARELY Cook MSW Student Discharge Planning/Care Management CM Discharge Assessment Start: 03/20/21 12:54 Freq: Status: Active Protocol: Document 03/20/21 12:54 AL (Rec: 03/20/21 12:56 AL [id number]) Discharge Planning Assessment Assigned Blood Tester Fowl YARELY Molina DPOA/Assigned Designee Name Jordan Caldwell, Advance Directives? No History Provided By Patient,Medical Record Has Patient been admitted in last 30 No days? Prior Living Arrangements House Household Members spouse,children Type of transporation used prior to Drives own vehicle admit Independent with ADL's Yes Is patient alert and oriented? Yes Caregiver for Another Yes: Children Barriers to Discharge No Discharge Plan Home Transportation Arrangement or Daughter will provide transportation at time of D/C Whiteboard Updated in Patient Room with Yes name and ext. # of Blood Tester Fowl Review Status In Process
--- NOTE | 2021-03-20 18:08 | PM.DS.1 ---
History of Present Illness History of Present Illness Date Patient Seen: 03/20/21 Time Patient Seen: 18:09 Chief complaint: Syncope Narrative: Per Dr. Stevens, The patient is a 61-year-old female with a history of depression, GERD, hyperlipidemia, fibromyalgia, irritable bowel syndrome who reports for the past several weeks she has had intermittent periods of lightheadedness and dizziness. She attributed it to the heat. Patient was in route from [place] to [facility] with her on her boat. She went to the restroom for shower and sat down and subsequently passed out. Patient states she felt lightheaded and woozy. As she was attempting to collect herself she literally loss consciousness. She denies any shortness of breath or chest pain. She has had no nausea or vomiting. No hematemesis no melena or bright red blood per rectum. The patient did not have anything to eat today and has had no BM. She does report a history of anemia which was associated with your to uterine fibroids many years ago. The patient is postmenopausal and does not have vaginal bleeding. She does report a taking ibuprofen is enlarged doses about 1 year ago but since that time has not been using ibuprofen. She has no history of ulcer. She does report having a colonoscopy 5 years ago which was negative except for polyp removal. She underwent the colonoscopy as she has a family history of colon cancer. Patient was evaluated in the emergency room and found to have a hemoglobin of 6 and hematocrit of 22. She is being transfused 2 units of packed RBCs and admitted to the hospital for further evaluation. In addition the patient was found to have a low MCV of 58, low iron, low iron sat, and evidence to suggest iron deficiency anemia. Discharge Providers Provider Date of admission: 03/19/21 14:06 Discharge Date: 03/20/21 Primary care physician: Crissy Devlin MD Discharge provider: Chucky Arrieta DO Summary Hospital Course Discharge Diagnosis: 1. Syncope, acute 2. Anemia, acute, secondary to iron deficiency. 3. Hyperlipidemia, chronic 4. Fibromyalgia, chronic 5. Depression, chronic 6 GERD, chronic Hospital Course: This is a a a 61-year-old female the past medical history of hyperlipidemia, fibromyalgia, depression, and GERD who presented to the emergency room after an episode of syncope. She was found to have a hemoglobin of 6.7 on admission. She improved her hemoglobin to 8.3 after 2 units of blood was given, and subsequently her hemoglobin improved to 8.4. EGD was performed by General surgery which showed a hiatal hernia but no evidence of gastritis or ulcerations. Given her stability in her hemoglobin, as well as no evidence of active bleeding, she is stable to pursue outpatient colonoscopy with her previous physician who performed 1 approximately 5 years ago. She stated that she was due for colonoscopy shortly anyway. Should her colonoscopy also be unremarkable further consideration for capsule endoscopy could be considered or possible evaluation for inadequate production given her iron deficiency anemia and concern for poor iron absorption. At this time she was started on oral iron tablets. I do recommend that she have repeat lab studies performed as an outpatient to assess if these are being absorbed. Exam Vital Signs (past 8 hours): - 03/20/21 12:00 03/20/21 15:30 03/20/21 15:43 Temperature 97.4 F L 98.3 F Pulse Rate 70 71 Respiratory Rate 18 14 Blood Pressure 137/73 138/78 Pulse Oximetry 100 100 99 03/20/21 16:35 03/20/21 16:40 03/20/21 16:45 Temperature 98.2 F Pulse Rate 75 72 62 Respiratory Rate 21 20 12 Blood Pressure 123/75 123/75 122/67 Pulse Oximetry 94 94 95 03/20/21 16:50 03/20/21 16:55 03/20/21 17:25 Temperature 96.7 F L 97.6 F Pulse Rate 60 56 L 60 Respiratory Rate 12 22 20 Blood Pressure 131/65 148/77 H 134/76 Pulse Oximetry 96 97 95 03/20/21 17:55 Temperature 97.3 F L Pulse Rate 64 Respiratory Rate 21 Blood Pressure 133/77 Pulse Oximetry 99 Oxygen Delivery Method Room Air Oxygen Flow Rate 0 Narrative Exam Narrative: GENERAL-well developed adult female, no acute distress HEENT-no scleral icterus, hearing intact NECK-no JVD, trachea midline CVS- regular rate, no peripheral edema RESP-unlabored respiratory effort, no audible wheezing GI-soft, nontender nondistended MSK-no cyanosis or clubbing, extremities without deformity SKIN-warm, dry NEURO-alert and oriented, no focal deficits PYSCH-Appropriate mood and affect Objective Labs Result Diagrams: 03/20/21 05:19 03/20/21 05:19 Labs: Laboratory Results - last 24 hr 03/19/21 03/19/21 03/20/21 12:46 21:00 05:19 WBC 9.4 7.2 RBC 4.16 4.24 Hgb 8.3 L 8.4 L Hct 27.2 L 27.9 L MCV 65.4 L D 65.8 L MCH 19.9 L 19.8 L MCHC 30.4 30.1 RDW 28.1 H 27.7 H Plt Count 225 224 Neut % (Auto) 69.8 64.7 Lymph % (Auto) 19.8 L 23.5 L [place] % (Auto) 9.4 9.9 Eos % (Auto) 0.1 L 0.7 L Baso % (Auto) 0.9 1.2 Neut # (Auto) 6500 4600 Lymph # (Auto) 1900 1700 [place] # (Auto) 900 700 Eos # (Auto) 0 100 Baso # (Auto) 100 100 RBC Morphology See below See below Polychromasia 1+ H 1+ H Hypochromasia 3+ H 3+ H Poikilocytosis 1+ H 1+ H Anisocytosis 3+ H 3+ H Microcytosis 2+ H Sodium Potassium Chloride Carbon Dioxide BUN Creatinine Estimated GFR BUN/Creatinine Ratio Glucose Calcium Crossmatch See Detail 03/20/21 05:19 WBC RBC Hgb Hct MCV MCH MCHC RDW Plt Count Neut % (Auto) Lymph % (Auto) [place] % (Auto) Eos % (Auto) Baso % (Auto) Neut # (Auto) Lymph # (Auto) [place] # (Auto) Eos # (Auto) Baso # (Auto) RBC Morphology Polychromasia Hypochromasia Poikilocytosis Anisocytosis Microcytosis Sodium 142 Potassium 3.8 Chloride 112 H Carbon Dioxide 24 BUN 8 Creatinine 0.69 Estimated GFR > 60.0 BUN/Creatinine Ratio 11.6 Glucose 113 H Calcium 9.1 Crossmatch [facility] Social History household members: spouse and children Smoking Status: Never smoker alcohol intake: current Discharge Plan Discharge Plan Patient Disposition: Home Provider Discharge Comment: You were admitted to the hospital with a severe anemia. This responded appropriately to transfusion and you improved. EGD was performed which showed a hiatal hernia but no evidence of inflammation or bleeding. You elected to persue outpatient colonoscopy with your PCP, I recommend you have this done as soon as possible. In the mean time you were noted to be deficient in iron and will be started on iron repletion. If your colonoscopy is negative you can look at something called capsule endoscopy or possibly hematology evaluation for difficulties with iron absorption depending on repeat testing in a few months. No other medication changes are recommended at this time. Please do not take iron and your omeprazole at the same time, ideally take one in the morning and the other at night. Discharge orders & Medications Prescriptions: New ferrous sulfate [iron] 325 mg (65 mg iron) tablet 325 mg PO Q OTHER DAY 90 Days Qty: 45 RF: 0 Continued tizanidine 4 mg tablet 4 mg PO BEDTIME PRN (Reason: Muscle Spasm) RF: 0 simvastatin 40 mg tablet 40 mg PO BEDTIME RF: 0 citalopram 20 mg tablet 20 mg PO DAILY RF: 0 omeprazole 20 mg capsule,delayed release(DR/EC) 20 mg PO DAILY RF: 0 Follow up/Referrals: Crissy Devlin MD [Primary Care Provider] - Diet/Activity/Treatments Diet: Diet as Tolerated Activity: As tolerated Visit Report/Discharge Packet Instructions: DI for Gastroesophageal Reflux Disease (GERD), DI for Hiatal Hernia Discharge Data Primary Care Provider: Crissy Devlin Attending Provider: Sherie Stevens VTE Deep Vein Thrombosis/Pulmonary Embolism Present on Admission: No
--- NOTE | 2021-03-20 19:23 | PC.NURSE ---
Discharge note: Patient left under own power, accompanied by spouse and LINEMARKER to [facility]. All belongings were gathered and verified by LINEMARKER. Tele removed and ICU notified. IVs removed and dressed with coban. Discharge education given on medications including new prescription, to f/u with PCM, s/sx of stroke, and when to return if necessary. Patient acknowledged all teaching and asked all questions to her satisfaction.
[2021-03-21 03:48] LABS: Haptoglobin 117 mg/dL (33-346)
== END 2021-03-20 18:55 | disposition home or self-care (01) ==
LOC: ED 13:22 → AC 14:07
PROVIDERS: Surgery; Admitting Provider Internal Medicine; Emergency Provider Emergency Medicine; PCP Family Medicine; Referring Provider Emergency Medicine; Visit Provider Internal Medicine
PROC: 0DJ08ZZ Inspection of Upper Intestinal Tract, Via Natural or Artificial Opening Endoscopic (ICD-10-PCS; CPT 43235; principal; 2021-03-20 16:45)
DX: R55 Syncope and collapse (principal); D64.9 Anemia, unspecified; K44.9 Diaphragmatic hernia without obstruction or gangrene; F32.9 Major depressive disorder, single episode, unspecified; K21.9 Gastro-esophageal reflux disease without esophagitis; E78.5 Hyperlipidemia, unspecified; M79.7 Fibromyalgia; K58.9 Irritable bowel syndrome, unspecified; Z20.822 Contact with and (suspected) exposure to COVID-19
CPT/HCPCS: 43239; 36415; 36430; 71045; 80048; 80053; 82247; 82550; 83010; 83540; 83550; 83615; 83690; 84484; 85025; 86850; 86900; 86901; 87635; 93005; 93010; 96361; 96374; 99284; C9803; G0378; P9016; C9113; J1756; J2250; J3010